=== PATIENT | male | born 1940 | race Caucasian/White ===

== ENCOUNTER 2021-01-10 07:19 | Day surgery (SDC) | payer MEDICARE ==
[2021-01-09 11:48] VITALS: BMI 28.5
--- NOTE | 2021-01-09 21:51 | HP ---
SUBJECTIVE: Mr. Head is a pleasant 80-year-old man, presenting for discussion of lower back pain and convincing neurogenic claudications with a new MRI from [facility]. This scan reveals profound stenosis at L3-4 with associated nerve root redundancy cephalad to this level. This most certainly is the cause of his troubles. PAST MEDICAL HISTORY: Significant for diabetes, unspecified kidney issues, arthritis, seasonal allergies. PAST SURGICAL HISTORY: Unspecified. CURRENT MEDICATIONS: 1. Metformin. 2. Glipizide. 3. Pregabalin. ALLERGIES: TO PENICILLIN AND SULFA MEDICATIONS. PHYSICAL EXAMINATION: Deferred for telehealth visit. ASSESSMENT: Lumbar stenosis with neurogenic claudication. PLAN: Dr. Walsh met with the patient, reviewed imaging, advocated for L3-4 decompression. He explained to the patient risks, benefits, and alternatives to the procedure. The patient expressed understanding and elected to move forward with surgery as discussed. I do believe the patient is mentally competent and capable of making medical decisions for himself. We will move forward with surgery as planned. Job ID: [id number]
[2021-01-10] MEDS ORDERED: Bupivacaine PF 0.5% 30 ML VIAL ONE (07:55)
[2021-01-10] MEDS ORDERED: EPINEPHrine 1 MG/ML AMP ONE (07:55)
[2021-01-10] MEDS ORDERED: Levofloxacin 500 mg/D5W 100 ml Premix Bag ONE (08:15)
[2021-01-10] MEDS ORDERED: Clindamycin/D5W 900 mg/50 ml Premix Bag ONE (08:15)
[2021-01-10] MEDS ORDERED: Fentanyl 100 MCG/2 ML VIAL ONE ×2 (08:54→10:08)
[2021-01-10] MEDS ORDERED: SUGAMMADEX SODIUM 200 MG/2 ML VIAL ONE (08:55)
[2021-01-10] MEDS ORDERED: Albuterol Sulfate HFA (OR ONLY) ONE (09:46)
[2021-01-10] MEDS ORDERED: Ondansetron PF 4 MG/2 ML Vial ONE (09:46)
[2021-01-10] MEDS ORDERED: Ketorolac Tromethamine 30 MG/ML VIAL ONE (09:46)
[2021-01-10] MEDS ORDERED: Lidocaine 1% PF 5 ML VIAL ONE (09:46)
[2021-01-10] MEDS ORDERED: Esmolol 100 MG/10 ML VIAL ONE (09:46)
[2021-01-10] MEDS ORDERED: Rocuronium Bromide 10 MG/ML (10ML VIAL) ONE (09:46)
[2021-01-10] MEDS ORDERED: PROPOFOL 200 MG/20 ML VIAL ONE (09:46)
[2021-01-10] MEDS ORDERED: Dexamethasone 20 MG/5 ML VIAL ONE (09:46)
[2021-01-10] MEDS ORDERED: PHENYLEPHRINE-NS 100 MCG/ML 10 ML SYRINGE ONE (09:46)
[2021-01-10] MEDS ORDERED: Tamsulosin HCl 0.4 MG CAP ONE (11:00)
--- NOTE | 2021-01-10 11:07 | OP ---
DATE OF PROCEDURE: 01/10/2021 YACHT RIGGER: Hugo Puente PA-C INDICATION: Pain. DIAGNOSIS: Lumbar stenosis. PROCEDURE PERFORMED: L3-L4 decompression. ANESTHESIA: General. DESCRIPTION OF PROCEDURE: The patient was brought into the operating room and placed under general anesthesia. He was flipped from the supine to prone position on the operating room table. A linear incision was planned at the L3-L4 segment. After prepping and draping and after an appropriate preoperative pause, the incision was created. The soft tissues were swept away from midline. A self-retaining retractor was placed for optimal exposure. After confirming appropriate level with C-arm fluoroscopy, an Adson rongeur was used to remove the spinous process along the inferior aspect of L3 and the superior aspect of L4. High-speed cutting drill bit as well as 2, 3, and 4 mm Kerrisons were used to complete the laminectomy including a central decompression as well as lateral recess decompression. After completing the decompression, the wound was irrigated. Hemostasis was maintained throughout. The wound was then closed in anatomic layers, and a pressure dressing was applied. There were no known procedural complications. Job ID: [id number]
== END 2021-01-10 13:42 | disposition home or self-care (01) ==
LOC: SDC 07:19
PROVIDERS: ATTEND Neurological Surgery
PROC: 01NB0ZZ Release Lumbar Nerve, Open Approach (ICD-10-PCS; principal; 2021-01-10)
DX: M48.062 Spinal stenosis, lumbar region with neurogenic claudication (principal); E11.9 Type 2 diabetes mellitus without complications; N28.9 Disorder of kidney and ureter, unspecified; M19.90 Unspecified osteoarthritis, unspecified site; J30.2 Other seasonal allergic rhinitis; F17.200 Nicotine dependence, unspecified, uncomplicated; Z79.84 Long term (current) use of oral hypoglycemic drugs; Z79.899 Other long term (current) drug therapy; Z88.0 Allergy status to penicillin; Z88.1 Allergy status to other antibiotic agents; Z88.2 Allergy status to sulfonamides
CPT/HCPCS: 76000; J0171; J1100; J1885; J1956; J2405; J2704; J3010; J3490; S0020